=== PATIENT | male | born 1950 | race Caucasian/White ===

== ENCOUNTER → 2019-10-05 08:56 | Outpatient (BNVA) | payer MEDICARE, SELFPAY | PROVIDERS: Family Provider Nurse Practitioner Family; PCP Nurse Practitioner Family; Visit Provider Nurse Practitioner Family | DX: E11.9 Type 2 diabetes mellitus without complications (principal); Z79.4 Long term (current) use of insulin; I10 Essential (primary) hypertension; R01.1 Cardiac murmur, unspecified; E78.5 Hyperlipidemia, unspecified | CPT/HCPCS: 80053; 80061; 82044; 83036 ==

== ENCOUNTER → 2020-06-04 00:01 | Outpatient (BNVA) | payer MEDICARE, SELFPAY | PROVIDERS: Family Provider Nurse Practitioner Family; PCP Nurse Practitioner Family; Visit Provider Nurse Practitioner Family | DX: R01.1 Cardiac murmur, unspecified (principal); I10 Essential (primary) hypertension; R53.83 Other fatigue; E11.9 Type 2 diabetes mellitus without complications | CPT/HCPCS: 80053; 83036; 84443 ==

== ENCOUNTER 2020-10-31 09:08 | Outpatient (CLI) | payer MEDICARE, SELFPAY ==
--- NOTE | 2020-10-31 09:15 | USCV_ITS ---
Usama Howell Age: 70 Gender: M : 1950 Exam Date: 10/31/2020 09:39 Ordering Phys: Vanna Grace Technologist: Exam Location: [facility] [place] Indication: MURMUR SYSTOLIC BP: 143 / 71 HR: 85 Rhythm: Sinus Technical Quality: Fair MEASUREMENTS (Male / Female) Normal Values 2D ECHO LV Diastolic Diameter PLAX 4.6 cm 4.2 - 5.9 / 3.9 - 5.3 cm LV Systolic Diameter PLAX 2.8 cm IVS Diastolic Thickness 1.5 cm 0.6 - 1.0 / 0.6 - 0.9 cm IVS Systolic Thickness 1.6 cm LVPW Diastolic Thickness 1.6 cm 0.6 - 1.0 / 0.6 - 0.9 cm LVPW Systolic Thickness 1.5 cm LVOT Diameter 2.1 cm LV Ejection Fraction 2D Teich 69.3 % LV Ejection Fraction MOD 2C 72.3 % LV Ejection Fraction 2C AL 71.6 % LA Diameter 3.7 cm LA Width 4.4 cm LA Height 5.2 cm RA Width 4.4 cm RA Height 4.7 cm Aorta at Sinotubular Diameter 2.7 cm DOPPLER AV Peak Velocity 225.0 cm/s LVOT Peak Velocity 118.0 cm/s AV Area Cont Eq vti 1.7 cm squared AV Area Cont Eq pk 1.8 cm squared MV Area PHT 5.0 cm squared Mitral E to A Ratio 0.6 MV E' Velocity 42.0 cm/s Mitral E to MV E' Ratio 11.1 Mitral E to LV E' Lateral Ratio 7.7 Mitral E to LV E' Septal Ratio 20.1 TR Peak Velocity 235.0 cm/s TR Peak Gradient 22.1 mmHg TV Peak E Velocity 106.0 cm/s Right Atrial Pressure 3.0 mmHg Pulmonary Artery Systolic Pressu 25.1 mmHg PV Peak Velocity 147.0 cm/s FINDINGS Left Ventricle Normal left ventricular cavity size. Increased left ventricular wall thickness. Moderate left ventricular hypertrophy. Normal left ventricular systolic function. Left ventricular ejection fraction is estimated at 70 %. Grade I diastolic dysfunction (abnormal relaxation filling pattern), normal to mildly elevated filling pressures. Right Ventricle Normal right ventricular size and systolic function. Right ventricular systolic pressure 32 mmHg. Right Atrium Normal right atrial size. Right atrial pressure estimated at 3 mm Hg. Markedly aneurysmal interatrial septum. No ASD or PFO identified on this study. Left Atrium Normal left atrial size. Mitral Valve Thickened mitral valve. No mitral valve stenosis. Trace mitral valve regurgitation. Aortic Valve Moderately thickened and calcified aortic valve. Aortic stenosis visually appears to be moderate. Mild to moderate aortic valve stenosis, peak velcity 2.3 m/sec, peak gradient 20 mm Hg, mean gradient 8.7 mmHg, THIAGO 1.7 cm squared. No aortic valve regurgitation. Tricuspid Valve Structurally normal tricuspid valve. Trace to mild tricuspid valve regurgitation. Pulmonic Valve Structurally normal pulmonic valve. No pulmonary valve stenosis. No significant pulmonary valve regurgitation. Pericardium No pericardial effusion. Aorta Normal sized aortic root. Normal sized inferior vena cava. CONCLUSIONS 1. Normal left ventricular cavity size. Moderate concentric left ventricular hypertrophy. Normal left ventricular systolic function. Left ventricular ejection fraction is estimated at 70 %. Grade I diastolic dysfunction (abnormal relaxation filling pattern), normal to mildly elevated filling pressures. 2. Normal right ventricular size and systolic function. 3. Markedly aneurysmal interatrial septum. No ASD or PFO identified on this study. 4. Moderately thickened and calcified aortic valve. Aortic stenosis visually appears to be moderate. Mild to moderate aortic valve stenosis, peak velcity 2.3 m/sec, peak gradient 20 mm Hg, mean gradient 8.7 mmHg, THIAGO 1.7 cm squared. 5. Pulmonary artery pressure estimated at 32 mm Hg. 6. When compared to previous study dated 11/05/2016, aortic stenosis seems to be new. Radha Marrufo MD (Electronically Signed) Final Date: 02 November 2020 13:35 S
== END 2020-10-31 09:09 | disposition home or self-care (01) ==
PROVIDERS: PCP Nurse Practitioner Family; Visit Provider Nurse Practitioner Family
DX: R01.1 Cardiac murmur, unspecified (principal); I35.0 Nonrheumatic aortic (valve) stenosis
CPT/HCPCS: 93306

== ENCOUNTER → 2020-11-12 16:41 | Outpatient (BNVA) | payer MEDICARE, SELFPAY | PROVIDERS: PCP Nurse Practitioner Family; Visit Provider Nurse Practitioner Family | DX: I10 Essential (primary) hypertension (principal); E11.9 Type 2 diabetes mellitus without complications; E78.5 Hyperlipidemia, unspecified; I35.0 Nonrheumatic aortic (valve) stenosis; Z79.4 Long term (current) use of insulin | CPT/HCPCS: 80053; 80061; 82043; 83036 ==

== ENCOUNTER → 2021-07-28 15:23 | Outpatient (BNVA) | payer MEDICARE, SELFPAY | PROVIDERS: PCP Nurse Practitioner Family; Visit Provider Nurse Practitioner Family | DX: I10 Essential (primary) hypertension (principal); E11.9 Type 2 diabetes mellitus without complications | CPT/HCPCS: 80053; 83036 ==

== ENCOUNTER 2021-09-03 09:10 | Outpatient (CLI) | payer MEDICARE, SELFPAY ==
--- NOTE | 2021-09-03 09:30 | MR_ITS ---
WS: [id number] MRI RIGHT SHOULDER NONCONTRAST TECHNIQUE: Sagittal T2, coronal T1, T2 and proton density imaging. Axial gradient PDE imaging. CLINICAL INFORMATION: M25.511 - Pain in right shoulder COMPARISON: None. FINDINGS: Advanced degenerative arthritis AC joint with edema. Hypertrophic spurring with synovial thickening. Mild downsloping acromion. Subacromial space is preserved. Small amount of subacromial/subdeltoid flu id. Impingement on the distal supraspinatus with tendinopathy. Small undersurface tear supraspinatus distally. No tendon retraction. Normal infraspinatus. Normal teres minor. Subscapularis appears ivridiana l. Normal biceps tendon in the bicipital groove. Tendinopathy intra-articular biceps tendon. Edema withi n the rotator interval. Subchondral cystic change involving the glenoid. Degenerative fraying involvi ng the glenoid labrum. Small amount of subcoracoid fluid. MR/MR shoulder RT wo con* [id number] IMPRESSION: 1. 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 2. Small amount of subacromial/subdeltoid fluid. 3. Tendinopathy distal supraspinatus with small undersurface tear distally. 4. Normal biceps tendon in the bicipital groove. 5. Tendinopathy intra-articular biceps tendon. 6. Chronic degenerative fraying of the glenoid labrum..
== END 2021-09-03 09:11 | disposition home or self-care (01) ==
LOC: RAD 09:11
PROVIDERS: PCP Nurse Practitioner Family; Visit Provider Nurse Practitioner Family
DX: M19.011 Primary osteoarthritis, right shoulder (principal); M25.511 Pain in right shoulder; G89.29 Other chronic pain
CPT/HCPCS: 73221

== ENCOUNTER → 2021-11-12 15:04 | Outpatient (BNVA) | payer MEDICARE, SELFPAY | PROVIDERS: PCP Nurse Practitioner Family; Visit Provider Nurse Practitioner Family | DX: E11.9 Type 2 diabetes mellitus without complications (principal); I10 Essential (primary) hypertension | CPT/HCPCS: 80053; 83036 ==

== ENCOUNTER 2022-07-14 14:52 | Outpatient (CLI) | payer MEDICARE, SELFPAY ==
--- NOTE | 2022-07-14 15:00 | CT_ITS ---
WS: [id number] CT CERVICAL SPINE TECHNIQUE: Noncontrast CT of the cervical spine with coronal and sagittal reformatted images. CLINICAL INFORMATION: G56.10 - Other lesions of median nerve, unspecified upper... COMPARISON: CT 2017 DLP: 305.[address] scans at [facility] use at least one of these dose optimization techniques: automated e xposure control; mA and/or kV adjustment per patient size (includes targeted exams where dose is matc hed to clinical indication); or iterative reconstruction. FINDINGS: Straightening of the normal cervical lordosis. Moderate spondylitic changes. Hypertrophic changes cer vical and upper thoracic spine. Advanced degenerative arthritis at the C1-C2 articulation with subcho ndral cystic change. Slight anterolisthesis C4 on C5 and C6 on C7. No high-grade central canal stenos is. Spondylitic changes progressed compared to 2017. C2-C3: Moderate RIGHT facet arthropathy. Mild bilateral bony foraminal narrowing. Spinal canal is pat ent. C3-C4: Mild disc osteophytic ridging. Slight effacement of ventral thecal sac. Moderate to advanced L EFT facet arthropathy with moderate LEFT bony foraminal narrowing. RIGHT foramen is patent. Mild cent ral canal stenosis. C4-C5: Slight anterolisthesis. Disc osteophyte complex with mild central canal stenosis. Moderate to advanced facet arthropathy with moderate bilateral bony foraminal narrowing. C5-C6: Disc osteophyte complex with tiny shallow central protrusion. Mild central canal stenosis. Mod erate RIGHT facet arthropathy. Moderate RIGHT and mild LEFT bony foraminal narrowing. Mild central ca nal stenosis. C6-C7: Disc osteophyte complex with endplate ridging. Slight anterolisthesis. Moderate to advanced LE FT facet arthropathy. Moderate LEFT and mild RIGHT bony foraminal narrowing. Normal visualized posterior fossa. Normal posterior nasopharynx. Normal prevertebral fat. C7-T1: Mild LEFT bony foraminal narrowing. Moderate LEFT facet arthropathy. Spinal canal and RIGHT fo ramen are patent. Disc osteophytic ridging eccentric to the LEFT. A few small low-attenuation thyroid nodules. CT/CT cervical spin wo con* [id number] IMPRESSION: 1. Straightening of the normal cervical lordosis with moderate spondylitic anand nges progressed compared to 2017 2. Mild central canal stenosis C3-C4 C4-C5 C5-C6 and C6-C7. 3. Multilevel moderate to severe bony foraminal narrowing worse at LEFT C3-C4, bilateral C4-C5, RIGHT C5-C6, and moderate LEFT C6-C7. 4. Multilevel moderate to advanced facet arthropathy worse at LEFT C3-C4, bila teral C4-C5, bilateral C5-C6 worse in the RIGHT, LEFT C6-C7, and LEFT C7-T1.
== END 2022-07-14 14:53 | disposition home or self-care (01) ==
PROVIDERS: PCP Nurse Practitioner Family; Visit Provider Nurse Practitioner Family
DX: G56.10 Other lesions of median nerve, unspecified upper limb (principal); M48.02 Spinal stenosis, cervical region; M47.812 Spondylosis without myelopathy or radiculopathy, cervical region
CPT/HCPCS: 72125

== ENCOUNTER → 2022-08-10 10:11 | Outpatient (BNVA) | payer MEDICARE, SELFPAY | PROVIDERS: PCP Nurse Practitioner Family; Visit Provider Anesthesiology Pain Medicine | DX: M54.12 Radiculopathy, cervical region (principal); M19.011 Primary osteoarthritis, right shoulder; M79.601 Pain in right arm; M79.602 Pain in left arm | CPT/HCPCS: 99204 ==

== ENCOUNTER → 2022-11-04 10:46 | Outpatient (BNVA) | payer MEDICARE, SELFPAY | PROVIDERS: PCP Nurse Practitioner Family; Visit Provider Nurse Practitioner Family | DX: E11.69 Type 2 diabetes mellitus with other specified complication (principal); N52.1 Erectile dysfunction due to diseases classified elsewhere; E78.5 Hyperlipidemia, unspecified; E78.1 Pure hyperglyceridemia; I10 Essential (primary) hypertension; E11.9 Type 2 diabetes mellitus without complications; G43.909 Migraine, unspecified, not intractable, without status migrainosus | CPT/HCPCS: 80053; 83036 ==

== ENCOUNTER 2023-01-11 20:57 | Emergency (ER) | payer MEDICARE, SELFPAY ==
[2023-01-11 21:08] VITALS: BP 178/73; PULSE 76; RESP 18; TEMP 36.7; O2SAT 95; BMI 26.5
--- NOTE | 2023-01-11 21:12 | ECG_ITS ---
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 Measurements Intervals [place] Rate: 72 P: 62 VT: 167 QRS: 39 QRSD: 106 T: 57 QT: 361 QTc: 398 Interpretive Statements SINUS RHYTHM POSSIBLE LEFT ATRIAL ENLARGEMENT [-0.1mV P-WAVE IN V1/V2] INTERPRETATION BASED ON A DEFAULT AGE OF 40 YEARS Compared to ECG 11/04/2016 23:42:46 Intraventricular conduction delay no longer present Electronically Signed On 01-12-2023 12:05:48 CDT by Thierno Goyal M.D. [email or web address]
--- NOTE | 2023-01-11 21:14 | XRR_ITS ---
PROCEDURE INFORMATION: Exam: XR Chest Exam date and time: 01/11/2023 9:23 PM Age: 72 years old Clinical indication: Other: AMS; Additional info: Altered mental status TECHNIQUE: Imaging protocol: Radiologic exam of the chest. Views: 1 view. COMPARISON: No relevant prior studies available. FINDINGS: Lungs: The lungs are hypoinflated. No focal infiltrate. Pleural spaces: Unremarkable. No pleural effusion. No pneumothorax. Heart/Mediastinum: Mild cardiomegaly. Bones/joints: Old right-sided rib fractures are seen inferiorly. XR/XR chest 1V portable [id number] IMPRESSION: No acute findings.
[2023-01-11 21:16] VITALS: BP 178/73; PULSE 74; RESP 18; O2SAT 96
[2023-01-11 21:18] LABS: Glucose Point of Care 316 mg/dL (70-110)
--- NOTE | 2023-01-11 21:19 | ED_ITS ---
Documented by User: Darion Rodas MD 01/11/23 22:48 HPI - Neuro Symptoms/Deficit General: Chief Complaint: Neuro Symptoms/Deficit Stated Complaint: GERMAIN/ Left arm weakness Time Seen by Provider: 01/11/23 21:00 Source: patient, family and EMS Mode of arrival: EMS Limitations: altered mental status (confusion; agitated) History of Present Illness: See nursing assessment. Patient seems somewhat agitated. Cannot sit still. Seems somewhat confused at times but does answer questions appropriately at other times. States he woke up with a migraine headache at 6 AM today. He stated that he woke up with mild right arm weakness. Last known well time was last night. Patient states he has had some nausea but no vomiting. States has had no change in his vision but has had a migraine all day. He is complaining of pain to the right side of his head. He states he took a migraine medication that he does not know the name of that did not help. He does have a past m edical history of hypertension and migraines since he was 15 years of age. Type II diabetic. Patient denies any previous history of stroke. His blood sugar prior to arrival was 322. Patient was correct on the month and year. He is moving his right arm well without any parent deficits. Appears to have normal strength in the left arm also. He has normal strength in bilateral lower extremities. Associated symptoms: Reports headache(s) and nausea; Deny chest pain or vomiting Review of Systems Const: Denies: fever(s) or chills Eyes: Denies: change in vision ENMT: Denies: throat pain Card: Denies: chest pain or palpitations Resp: Denies: dyspnea or wheezing GI: Reports: nausea; Denies: abdominal pain or vomiting : Denies: flank pain Musc: Denies: neck pain or back pain Skin/Breast: Denies: rash or pruritus Neuro: Reports: headache(s) and weakness in extremities (Complaining of weakness in the right upper extremity); Denies: numbness in extremities Psych: Reports: irritability; Denies: anxiety Matteo/Lymph: Denies: enlarged lymph nodes [facility] ED PFSH: Medical History Aortic stenosis Diabetes HTN (hypertension), benign Hyperlipidemia associated with type 2 diabetes mellitus Hypertriglyceridemia Social History Smoking and tobacco status: former smoker Second hand smoke exposure: No Alcohol intake: never Substance/Drug Use: never 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 NIH stroke score NIHSS: Level Of Consciousness - 1a: 0 Level Of Consciousness Questions - 1b: Both Correct Level Of Consciousness Commands - 1c: Both Correct Best Gaze - 2: Normal Visual [place] - 3: No Visual Loss Facial Palsy - 4: Normal Motor Arm Right - 5: No Drift Motor Arm Left - 5: No Drift Motor Leg Right - 6: No Drift Motor Leg Left - 6: No Drift Limb Ataxia - 7: A bsent Sensory - 8: Normal Best Language - 9: No Aphasia Dysarthia - 10: Normal Extinction And Inattention - 11: 0 Score: Total Score: 0 Physical Exam Const: COMMON NORMALS: well nourished HENMT: COMMON NORMALS: normocephalic and atraumatic HEAD & SCALP: normoc ephalic and atraumatic FACE & SINUS: normal facial exam OTHER: Tongue protrudes slightly to the right. Eye: COMMON NORMALS: EOMs intact bilaterally Neck/C-Spine: COMMON NORMALS: full ROM, no lymphadenopathy, supple and no meningeal signs GENERAL: Yes normal visual inspection Lymph: LYMPHATIC: no lymphadenopathy noted Chest: COMMONS NORMALS: normal inspection of the chest and normal palpation of entire chest wall CHEST: No Ecchymosis present and No rash Resp: COMMON NORMALS: normal respiratory effort, No retractions and clear to auscultation bilaterally EFFORT & INSPECTION: No respiratory distress AUSCULTATION: clear to auscultation bilaterally Cardio: COMMON NORMALS: regular rate, regular rhythm and Peripheral pulses 2+ throughout JUGULAR VENOUS DISTENTION: no JVD RATE: regular rate RHYTHM: regular rhythm PERIPHERAL PULSES: Peripheral pulses 2+ throughout GI: COMMON NORMALS: Normal to inspection, nondistended, normoactive bowel sounds present, Soft to palpation, non-tender, No hepatosplenomegaly present and no masses PALPATION: Yes Soft to palpation and Yes No hepatosplenomegaly pres ent : COMMON NORMALS: Yes no CVA tenderness BLADDER/KIDNEY EXAM: Yes no CVA tenderness Back/Pelvis: COMMON NORMALS: no CVA tenderness Extremity: COMMON NORMALS: normal to inspection, full ROM and capillary refill normal Neuro: COMMON NORMALS: CN's II-XII intact bilaterally, no focal motor deficits and no sensory deficits noted MENINGEAL SIGNS: Yes no meningeal signs OTHER: Patient oriented to month year and name. He does not know where he is at this time. Psych: OTHER: Patient seems slow to process questions. He appears slightly confused although he does answer questions appropriately most of the time. His speech is clear. He is moving all his extremities well. He appears somewhat irritated. Skin: COMMON NORMALS: no rashes or lesions noted and no wounds GENERAL SKIN EXAM: no rashes or lesions noted Course Vital Signs: Vital signs: Vital Signs Temperature 100.4 F H 01/11/23 23:09 Pulse Rate 93 01/12/23 00:15 Respiratory Rate 18 01/11/23 23:01 Blood Pressure 158/75 01/12/23 00:15 Pulse Oximetry 95 01/12/23 00:15 Oxygen Delivery Me thod Room Air 01/12/23 00:15 MDM - Neuro Symptoms/Deficit Medical Decision Making 72-year-old male with irritability and report of mild weakness in the right upper extremity and migraine headache. Last known well time was last night before bedtime. Patient awakened this morning with right upper extremity weakness and headache. Differential diagnoses include CVA, intercranial hemorrhage, bacteremia, migraine headache, cluster headache, electrolyte abnormality. 2210: Discussed case with son who arrived later. Son states he had a similar episode similar to today's events about 6 years ago in 2017. States he had neurological changes and migraine headache for 2 to 3 days. Patient was found to 3 days later and had hypoglycemia at that time. Patient eventually was taken to the hospital and diagnosed with a stroke at that time. Son states he has not been ill recently. States that his symptoms started this morning. No history of aneurysm that he knows of. 2243: Rectal temperature is 100.4. Care will be turned over to Dr. Wu at shift change. Lab Data 01/11/23 22:41 01/12/23 00:33 Radiology Impressions Chest X-Ray 01/11/23 21:14 IMPRESSION: No acute findings. Head CT 01/11/23 21:17 IMPRESSION: No acute intracranial abnormality. ASSESSMENT: ASPECTS ([place] Stroke Program Early CT Score) is 10. Laboratory Results WBC 16.09 10^3/uL (3.29-11.43) H 01/11/23 22:41 Corrected WBC Cancelled 01/11/23 21:20 RBC 4.36 10^6/uL (3.85-5.65) 01/11/23 22:41 Hgb 12.80 g/dL (11.27-16.99) 01/11/23 22:41 Hct 39.5 % (37-53) 01/11/23 22:41 MCV 90.6 fl (82-101) 01/11/23 22:41 MCH 29.4 pg (27-33) 01/11/23 22:41 MCHC 32.4 g/dL (30-55) 01/11/23 22:41 RDW 12.7 % (12.1-15.1) 01/11/23 22:41 Plt Count 216 10^3/cmm (157-399) 01/11/23 22:41 MPV 10.9 fL (7.4-10.4) H 01/11/23 22:41 Gran % Cancelled 01/11/23 21:20 Neut % (Auto) 85.6 % 01/11/23 22:41 Lymph % (Auto) 9.7 % 01/11/23 22:41 Rooks % (Auto) 3.9 % 01/11/23 22:41 Eos % (Auto) 0.0 % 01/11/23 22:41 Baso % (Auto) 0.4 % 01/11/23 22:41 Neut # (Auto) 13.77 10^3/uL (1.8-7.7) H 01/11/23 22:41 Lymph # (Auto) 1.6 10^3/uL (0.8-4.8) 01/11/23 22:41 Rooks # (Auto) 0.6 10^3/uL (0.2-0.9) 01/11/23 22:41 Eos # (Auto) 0.0 10^3/uL (0.0-0.8) 01/11/23 22:41 Baso # (Auto) 0.1 10^3/uL (0.0-0.1) 01/11/23 22:41 Absolute Gran (auto) Cancelled 01/11/23 21:20 Nucleated RBC % (auto) 0 % 01/11/23 22:41 Nucleated RBCs # 0.0 /100WBC 01/11/23 22:41 PT 14.10 SECONDS (12.1-14.9) 01/11/23 22:41 INR 1.05 (0.8-1.2) 01/11/23 22:41 APTT 23.8 SECONDS (23.9-36.7) L 01/11/23 22:41 Sodium 135 mmol/L (136-145) L 01/12/23 00:33 Potassium 5.4 mmol/L (3.5-5.1) H 01/12/23 00:33 Chloride 107 mmol/L (98-107) 01/12/23 00:33 Carbon Dioxide 19 mmol/L (22-29) L 01/12/23 00:33 Anion Gap 14.4 (5-19) 01/12/23 00:33 BUN 25 mg/dL (8-23) H 01/12/23 00:33 Creatinine 1.3 mg/dL (0.7-1.2) H 01/12/23 00:33 GFR Calculation Not Reportable 01/12/23 00:33 Glucose 288 mg/dL (65-115) H 01/12/23 00:33 POC Glucose 316 mg/dL (70-110) H 01/11/23 21:10 Calculated Osmolality 295 mOsm/kg (285-295) 01/12/23 00:33 Lactic Acid Cancelled 01/11/23 21:20 Lactate 3.8 mmol/L (0.5-2.2) H 01/11/23 22:20 Calcium 8.4 mg/dL (8.5-10.5) L 01/12/23 00:33 Magnesium 1.9 mg/dL (1.7-2.3) 01/11/23 22:41 Total Bilirubin 0.4 mg/dL (0.15-1.2) 01/11/23 22:41 AST 12 U/L (0-40) 01/11/23 22:41 ALT 12 U/L (0-41) 01/11/23 22:41 Alkaline Phosphatase 71 U/L (40-130) 01/11/23 22:41 Troponin T Baseline 12 ng/L (0-15) 01/11/23 22:41 Troponin T 120 Minute 13.03 ng/L (0-15) 01/12/23 00:33 Delta Troponin T 1.03 ABS# (0-10) 01/12/23 00:33 Total Protein 7.2 g/dL (6.6-8.7) 01/11/23 22:41 Albumin 4.7 g/dL (3.5-5.2) 01/11/23 22:41 Globulin 2.5 g/dL (1.3-4.6) 01/11/23 22:41 Ethyl Alcohol < 10 mg/dL (0-10) 01/11/23 22:41 Imaging Data CXR: My impression: Nothing acute. No infiltrates or effusions. No pneumothorax. No cardiomegaly. CT Head: Radiologist's impression: Ordering Provider/Ordering MD: Darion Rodas MD Date of Service: 01/11/23 Procedure(s): CT head wo con* [id number] Accession Number(s): [id number] Report Number: [id number] PROCEDURE INFORMATION: Exam: CT Head Without Contrast Exam date and time: 01/11/2023 9:38 PM Age: 72 years old Clinical indication: Stroke-like symptoms; Altered mental status/memory loss; Additional info: Headache, confusion; R/O CVA vs hemorrhage TECHNIQUE: Imaging protocol: Computed tomography of the head without contrast. Radiation optimization: All CT scans at this facility use at least one of these dose optimization techniques: automated exposure control; mA and/or kV adjustment per patient size (includes targeted exams where dose is matched to clinical indication); or iterative reconstruction. Other technique: STROKE PROTOCOL was implemented. REPORTING DATA: Count of CT and Cardiac NM exams in prior 12 months: This patient has received 0 known CTs and 0 known cardiac nuclear medicine studies in the 12 months prior to the current study. COMPARISON: No relevant prior studies available. RADIATION DOSE METRICS: Total DLP (mGy-cm): 1254.88 FINDINGS: Brain: No acute infarct. No hemorrhage. Unremarkable white matter for age. No mass effect. There are small chronic appearing lacunar type infarcts in the left inferior cerebellum present. Cerebral ventricles: No ventriculomegaly. Paranasal sinuses: No significant inflammation. No fluid levels. Mastoid air cells: Visualized mastoid air cells are well aerated. Bones/joints: Unremarkable. No acute fracture. Soft tissues: Unremarkable. CT/CT head wo con* [id number] IMPRESSION: No acute intracranial abnormality. ASSESSMENT: ASPECTS ([place] Stroke Program Early CT Score) is 10. EKG Data EKG 1: I personally reviewed and interpreted this EKG as follows: EKG interpretation date: 01/11/23 EKG interpretation time: 21:15 Interpretation: Normal sinus rhythm with heart rate of 72. Left atrial enlargement, normal VT interval, normal QT interval, normal T waves. Normal QRS, normal ST segment. 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, intractable, without status migrainosus Type 2 diabetes mellitus with hyperglycemia Qualifiers: Diabetes mellitus intermediate teacher insulin use: without intermediate teacher use Qualified Code(s): E11.65 - Type 2 diabetes mellitus with hyperglycemia Condition: Stable Prescriptions: No Action diclofenac sodium [Voltaren Arthritis Pain] 1 % gel 2 g topical QID Qty: 100 6RF Rx Instructions: apply to area of pain methylprednisolone acetate 40 mg/mL suspension 40 mg IM ONCE Qty: 1 0RF dexamethasone sodium phosphate 4 mg/mL solution 4 mg IM ONCE Qty: 1 0RF prednisone 20 mg tablet 10 mg PO DAILY PRN (Reason: pain) Qty: 20 1RF Rx Instructions: as needed for back pain flare up ibuprofen 200 mg tablet 200 mg PO Q6H PRN topiramate 50 mg tablet See Rx Instructions .ROUTE .COMPLEX Qty: 90 1RF Dose Instruction: TAKE 1 TABLET BY MOUTH EVERY DAY Rx Instructions: TAKE 1 TABLET BY MOUTH EVERY DAY; metformin 500 mg tablet extended release 24 hr See Rx Instructions .ROUTE .COMPLEX Qty: 90 1RF Dose Instruction: TAKE 1 TABLET(500 MG) BY MOUTH EVERY DAY AT NOON Rx Instructions: TAKE 1 TABLET(500 MG) BY MOUTH EVERY DAY AT NOON; metformin 1,000 mg tablet See Rx Instructions .ROUTE .COMPLEX Qty: 180 1RF Dose Instruction: TAKE 1 TABLET BY MOUTH TWICE DAILY Rx Instructions: TAKE 1 TABLET BY MOUTH TWICE DAILY lisinopril 40 mg tablet See Rx Instructions .ROUTE .COMPLEX Qty: 90 1RF Dose Instruction: TAKE 1 TABLET BY MOUTH EVERY DAY Rx Instructions: TAKE 1 TABLET BY MOUTH EVERY DAY; glimepiride 4 mg tablet See Rx Instructions .ROUTE .COMPLEX Qty: 90 1RF Dose Instruction: TAKE 1 TABLET BY MOUTH EVERY MORNING Rx Instructions: TAKE 1 TABLET BY MOUTH EVERY MORNING; Januvia 100 mg tablet 100 mg PO QDAY 90 Days Qty: 90 1RF Rx Instructions: 340B celecoxib [Celebrex] 200 mg capsule 200 mg PO BID Qty: 20 0RF Rx Instructions: needs appt gabapentin 300 mg capsule See Rx Instructions .ROUTE .COMPLEX Qty: 90 0RF Dose Instruction: TAKE 1 CAPSULE BY MOUTH THREE TIMES DAILY FOR PAIN Rx Instructions: TAKE 1 CAPSULE BY MOUTH THREE TIMES DAILY FOR PAIN Discharge Orders: Discharge ED (Routine); Ordered 01/12/23 Ordered By: Randy Wu Referrals: Vanna Grace FNP [Primary Care Provider] - Patient Instructions: Hyperkalemia, Headache - Migraine (Adult) Activity Restrictions/Additional Instructions: Please hold your lisinopril as this may cause your potassium to rise. Please keep an eye on your blood pressure. Please follow-up with your family practice doctor within the next 7 days or sooner if possible. If your blood pressure rises out of control or your symptoms return please return to the ER for further evaluation and treatment. 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 Last known well time was last night before bedtime. Patient awakened this morning with right upper extremity weakness and headache. Differential diagnoses include CVA, intercranial hemorrhage, bacteremia, migraine headache, cluster headache, electrolyte abnormality. 2210: Discussed case with son who arrived later. Son states he had a similar episode similar to today's events about 6 years ago in 2017. States he had neurological changes and migraine headache for 2 to 3 days. Patient was found to 3 days later and had hypoglycemia at that time. Patient eventually was taken to the hospital and diagnosed with a stroke at that time. Son states he has not been ill recently. States that his symptoms started this morning. No history of aneurysm that he knows of. 2243: Rectal temperature is 100.4. Care will be turned over to Dr. Wu at shift change. Lab work was obtained which showed a white count of 16,000 hemoglobin hematocrit 12.8 and 39.5. Sodium 135 potassium 6.4 BUN and creatinine of 25 and 1.3 after 1 L normal saline is potassium dropped to 5.4. Dr. Michelle was consulted due to patient's atypical migraine and leukocytosis and hyperkalemia. She wanted us to redraw BMP and see if it improved and if it did we could discharge him home. He did improve from 6.4 down to 5.4 and he patient is on lisinopril which we will hold. Patient should follow-up with his family practice doctor within the next 7 days and keep an eye on his blood pressure as this may rise since we are holding his lisinopril secondary to his potassium. Lab Data 01/11/23 22:41 01/12/23 00:33 Radiology Impressions Chest X-Ray 01/11/23 21:14 IMPRESSION: No acute findings. Head CT 01/11/23 21:17 IMPRESSION: No acute intracranial abnormality. ASSESSMENT: ASPECTS ([place] Stroke Program Early CT Score) is 10. Laboratory Results WBC 16.09 10^3/uL (3.29-11.43) H 01/11/23 22:41 Corrected WBC Cancelled 01/11/23 21:20 RBC 4.36 10^6/uL (3.85-5.65) 01/11/23 22:41 Hgb 12.80 g/dL (11.27-16.99) 01/11/23 22:41 Hct 39.5 % (37-53) 01/11/23 22:41 MCV 90.6 fl (82-101) 01/11/23 22:41 MCH 29.4 pg (27-33) 01/11/23 22:41 MCHC 32.4 g/dL (30-55) 01/11/23 22:41 RDW 12.7 % (12.1-15.1) 01/11/23 22:41 Plt Count 216 10^3/cmm (157-399) 01/11/23 22:41 MPV 10.9 fL (7.4-10.4) H 01/11/23 22:41 Gran % Cancelled 01/11/23 21:20 Neut % (Auto) 85.6 % 01/11/23 22:41 Lymph % (Auto) 9.7 % 01/11/23 22:41 Rooks % (Auto) 3.9 % 01/11/23 22:41 Eos % (Auto) 0.0 % 01/11/23 22:41 Baso % (Auto) 0.4 % 01/11/23 22:41 Neut # (Auto) 13.77 10^3/uL (1.8-7.7) H 01/11/23 22:41 Lymph # (Auto) 1.6 10^3/uL (0.8-4.8) 01/11/23 22:41 Rooks # (Auto) 0.6 10^3/uL (0.2-0.9) 01/11/23 22:41 Eos # (Auto) 0.0 10^3/uL (0.0-0.8) 01/11/23 22:41 Baso # (Auto) 0.1 10^3/uL (0.0-0.1) 01/11/23 22:41 Absolute Gran (auto) Cancelled 01/11/23 21:20 Nucleated RBC % (auto) 0 % 01/11/23 22:41 Nucleated RBCs # 0.0 /100WBC 01/11/23 22:41 PT 14.10 SECONDS (12.1-14.9) 01/11/23 22:41 INR 1.05 (0.8-1.2) 01/11/23 22:41 APTT 23.8 SECONDS (23.9-36.7) L 01/11/23 22:41 Sodium 135 mmol/L (136-145) L 01/12/23 00:33 Potassium 5.4 mmol/L (3.5-5.1) H 01/12/23 00:33 Chloride 107 mmol/L (98-107) 01/12/23 00:33 Carbon Dioxide 19 mmol/L (22-29) L 01/12/23 00:33 Anion Gap 14.4 (5-19) 01/12/23 00:33 BUN 25 mg/dL (8-23) H 01/12/23 00:33 Creatinine 1.3 mg/dL (0.7-1.2) H 01/12/23 00:33 GFR Calculation Not Reportable 01/12/23 00:33 Glucose 288 mg/dL (65-115) H 01/12/23 00:33 POC Glucose 316 mg/dL (70-110) H 01/11/23 21:10 Calculated Osmolality 295 mOsm/kg (285-295) 01/12/23 00:33 Lactic Acid Cancelled 01/11/23 21:20 Lactate 3.8 mmol/L (0.5-2.2) H 01/11/23 22:20 Calcium 8.4 mg/dL (8.5-10.5) L 01/12/23 00:33 Magnesium 1.9 mg/dL (1.7-2.3) 01/11/23 22:41 Total Bilirubin 0.4 mg/dL (0.15-1.2) 01/11/23 22:41 AST 12 U/L (0-40) 01/11/23 22:41 ALT 12 U/L (0-41) 01/11/23 22:41 Alkaline Phosphatase 71 U/L (40-130) 01/11/23 22:41 Troponin T Baseline 12 ng/L (0-15) 01/11/23 22:41 Troponin T 120 Minute 13.03 ng/L (0-15) 01/12/23 00:33 Delta Troponin T 1.03 ABS# (0-10) 01/12/23 00:33 Total Protein 7.2 g/dL (6.6-8.7) 01/11/23 22:41 Albumin 4.7 g/dL (3.5-5.2) 01/11/23 22:41 Globulin 2.5 g/dL (1.3-4.6) 01/11/23 22:41 Ethyl Alcohol < 10 mg/dL (0-10) 01/11/23 22:41 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, intractable, without status migrainosus Type 2 diabetes mellitus with hyperglycemia Qualifiers: Diabetes mellitus intermediate teacher insulin use: without intermediate teacher use Qualified Code(s): E11.65 - Type 2 diabetes mellitus with hyperglycemia Condition: Stable Prescriptions: No Action diclofenac sodium [Voltaren Arthritis Pain] 1 % gel 2 g topical QID Qty: 100 6RF Rx Instructions: apply to area of pain methylprednisolone acetate 40 mg/mL suspension 40 mg IM ONCE Qty: 1 0RF dexamethasone sodium phosphate 4 mg/mL solution 4 mg IM ONCE Qty: 1 0RF prednisone 20 mg tablet 10 mg PO DAILY PRN (Reason: pain) Qty: 20 1RF Rx Instructions: as needed for back pain flare up ibuprofen 200 mg tablet 200 mg PO Q6H PRN topiramate 50 mg tablet See Rx Instructions .ROUTE .COMPLEX Qty: 90 1RF Dose Instruction: TAKE 1 TABLET BY MOUTH EVERY DAY Rx Instructions: TAKE 1 TABLET BY MOUTH EVERY DAY; metformin 500 mg tablet extended release 24 hr See Rx Instructions .ROUTE .COMPLEX Qty: 90 1RF Dose Instruction: TAKE 1 TABLET(500 MG) BY MOUTH EVERY DAY AT NOON Rx Instructions: TAKE 1 TABLET(500 MG) BY MOUTH EVERY DAY AT NOON; metformin 1,000 mg tablet See Rx Instructions .ROUTE .COMPLEX Qty: 180 1RF Dose Instruction: TAKE 1 TABLET BY MOUTH TWICE DAILY Rx Instructions: TAKE 1 TABLET BY MOUTH TWICE DAILY lisinopril 40 mg tablet See Rx Instructions .ROUTE .COMPLEX Qty: 90 1RF Dose Instruction: TAKE 1 TABLET BY MOUTH EVERY DAY Rx Instructions: TAKE 1 TABLET BY MOUTH EVERY DAY; glimepiride 4 mg tablet See Rx Instructions .ROUTE .COMPLEX Qty: 90 1RF Dose Instruction: TAKE 1 TABLET BY MOUTH EVERY MORNING Rx Instructions: TAKE 1 TABLET BY MOUTH EVERY MORNING; Januvia 100 mg tablet 100 mg PO QDAY 90 Days Qty: 90 1RF Rx Instructions: 340B celecoxib [Celebrex] 200 mg capsule 200 mg PO BID Qty: 20 0RF Rx Instructions: needs appt gabapentin 300 mg capsule See Rx Instructions .ROUTE .COMPLEX Qty: 90 0RF Dose Instruction: TAKE 1 CAPSULE BY MOUTH THREE TIMES DAILY FOR PAIN Rx Instructions: TAKE 1 CAPSULE BY MOUTH THREE TIMES DAILY FOR PAIN Discharge Orders: Discharge ED (Routine); Ordered 01/12/23 Ordered By: Randy Wu Referrals: Vanna Grace FNP [Primary Care Provider] - Patient Instructions: Hyperkalemia, Headache - Migraine (Adult) Activity Restrictions/Additional Instructions: Please hold your lisinopril as this may cause your potassium to rise. Please keep an eye on your blood pressure. Please follow-up with your family practice doctor within the next 7 days or sooner if possible. If your blood pressure rises out of control or your symptoms return please return to the ER for further evaluation and treatment. Coding Level of Care Code ED Glassware Finisher for Jose Abbott
[2023-01-11 21:31] VITALS: BP 171/57; PULSE 73; RESP 18; O2SAT 98
[2023-01-11 21:46] VITALS: BP 146/53; PULSE 76; RESP 16; O2SAT 96
[2023-01-11] MEDS: LORazepam 2 mg/mL INJ 1 mL 0.5 MG IVP ×2 (21:49→22:29)
[2023-01-11 22:47] LABS: Basophils # 0.1 10^3/uL (0.0-0.1); Basophils % 0.4 %; Hematocrit 39.5 % (37-53); Lymphocytes # 1.6 10^3/uL (0.8-4.8); Lymphocytes % 9.7 %; Mean Corpuscular HGB Conc 32.4 g/dL (30-55); Mean Corpuscular Hemoglobin 29.4 pg (27-33); Mean Corpuscular Volume 90.6 fl (82-101); Mean Platelet Volume 10.9 fL (7.4-10.4); Monocytes # 0.6 10^3/uL (0.2-0.9); Monocytes % 3.9 %; Neutrophils # 13.77 10^3/uL (1.8-7.7); Neutrophils % 85.6 %; Nucleated Red Blood Cells % 0 %; Platelet Count 216 10^3/cmm (157-399); Red Blood Count 4.36 10^6/uL (3.85-5.65); Red Cell Distribution Width 12.7 % (12.1-15.1); White Blood Count 16.09 10^3/uL (3.29-11.43)
[2023-01-11 22:50] LABS: Lactate (Lactic Acid level) 3.8 mmol/L (0.5-2.2)
[2023-01-11 23:00] LABS: INR 1.05 (0.8-1.2)
[2023-01-11 23:01] VITALS: BP 153/69; PULSE 83; RESP 18; O2SAT 95
[2023-01-11 23:01] LABS: Partial Thromboplastin Time 23.8 SECONDS (23.9-36.7)
[2023-01-11 23:09] VITALS: TEMP 38
[2023-01-11 23:11] LABS: Alanine Aminotransferase 12 U/L (0-41); Albumin Level 4.7 g/dL (3.5-5.2); Alkaline Phosphatase 71 U/L (40-130); Anion Gap 18.4 (5-19); Aspartate Amino Transferase 12 U/L (0-40); Blood Urea Nitrogen 24 mg/dL (8-23); Calcium 9.3 mg/dL (8.5-10.5); Carbon Dioxide 18 mmol/L (22-29); Chloride 107 mmol/L (98-107); Globulin 2.5 g/dL (1.3-4.6); Glucose 314 mg/dL (65-115); Magnesium 1.9 mg/dL (1.7-2.3); Osmolality Calculated 300 mOsm/kg (285-295); Potassium 6.4 mmol/L (3.5-5.1); Sodium 137 mmol/L (136-145); Total Bilirubin 0.4 mg/dL (0.15-1.2); Total Protein 7.2 g/dL (6.6-8.7)
[2023-01-11 23:12] LABS: Troponin(5th) Baseline 12 ng/L (0-15)
[2023-01-11 23:17] LABS: Alcohol Level < 10 mg/dL (0-10)
[2023-01-12] MEDS: sodium chloride 0.9% 1,000 ML 999 ML IV (00:08)
[2023-01-12 00:15] VITALS: BP 158/75; PULSE 93; O2SAT 95
[2023-01-12 01:03] LABS: Anion Gap 14.4 (5-19); Blood Urea Nitrogen 25 mg/dL (8-23); Calcium 8.4 mg/dL (8.5-10.5); Carbon Dioxide 19 mmol/L (22-29); Chloride 107 mmol/L (98-107); Glucose 288 mg/dL (65-115); Osmolality Calculated 295 mOsm/kg (285-295); Potassium 5.4 mmol/L (3.5-5.1); Sodium 135 mmol/L (136-145)
[2023-01-12 01:08] LABS: Troponin 5 2HR 13.03 ng/L (0-15); Troponin 5 2HR Delta 1.03 ABS# (0-10)
[2023-01-12 02:07] VITALS: BP 104/78; RESP 16; O2SAT 96
== END 2023-01-12 02:14 | disposition home or self-care (01) ==
PROVIDERS: Family Medicine; Emergency Provider Emergency Medicine; PCP Nurse Practitioner Family
DX: G43.419 Hemiplegic migraine, intractable, without status migrainosus (principal); E87.5 Hyperkalemia; E11.65 Type 2 diabetes mellitus with hyperglycemia; Z79.84 Long term (current) use of oral hypoglycemic drugs; I10 Essential (primary) hypertension; E78.5 Hyperlipidemia, unspecified; Z87.891 Personal history of nicotine dependence
CPT/HCPCS: 36415; 36416; 70450; 71045; 80048; 80053; 80307; 82962; 83605; 83735; 84484; 85025; 85610; 85730; 87040; 93005; 96361; 96374; 96376; 99285; J2060; J7030

== ENCOUNTER → 2023-01-27 11:40 | Outpatient (BNVA) | payer MEDICARE, SELFPAY | PROVIDERS: PCP Nurse Practitioner Family; Visit Provider Nurse Practitioner Family | DX: D72.829 Elevated white blood cell count, unspecified (principal); E87.6 Hypokalemia | CPT/HCPCS: 80053; 85025 ==

== ENCOUNTER → 2023-03-02 10:08 | Outpatient (BNVA) | payer MEDICARE, SELFPAY | PROVIDERS: PCP Nurse Practitioner Family; Visit Provider Nurse Practitioner Family | DX: E11.9 Type 2 diabetes mellitus without complications (principal); I10 Essential (primary) hypertension | CPT/HCPCS: 80053; 80061; 83036 ==

== ENCOUNTER → 2023-06-08 09:14 | Outpatient (BNVA) | payer MEDICARE, SELFPAY | PROVIDERS: PCP Nurse Practitioner Family; Visit Provider Nurse Practitioner Family | DX: E11.9 Type 2 diabetes mellitus without complications (principal); I10 Essential (primary) hypertension | CPT/HCPCS: 80053; 80061; 83036 ==

== ENCOUNTER → 2023-11-24 09:51 | Outpatient (BNVA) | payer MEDICARE, SELFPAY | PROVIDERS: PCP Nurse Practitioner Family; Visit Provider Nurse Practitioner Family | DX: I10 Essential (primary) hypertension (principal); E11.9 Type 2 diabetes mellitus without complications | CPT/HCPCS: 80053; 80061; 83036 ==

== ENCOUNTER → 2024-06-21 15:26 | Outpatient (BNVA) | payer MEDICARE, SELFPAY | PROVIDERS: PCP Nurse Practitioner Family; Visit Provider Nurse Practitioner Family | DX: I10 Essential (primary) hypertension (principal); E11.9 Type 2 diabetes mellitus without complications | CPT/HCPCS: 80053; 80061; 83036 ==

== ENCOUNTER → 2024-10-05 11:28 | Outpatient (BNVA) | payer MEDICARE, SELFPAY | PROVIDERS: PCP Nurse Practitioner Family; Visit Provider Nurse Practitioner Family | DX: I10 Essential (primary) hypertension (principal); E11.9 Type 2 diabetes mellitus without complications | CPT/HCPCS: 80053; 80061; 83036 ==